=== PATIENT | female | born 1935 | race Caucasian/White ===

== ENCOUNTER 2017-04-09 13:03 | Outpatient (CLI) | payer OTHER ==
[2017-04-10] MEDS ORDERED: gadopentetate dimeglumine 7.5 MMOL/15 ML syringe ONE (16:37)
== END 2017-04-09 23:59 | disposition home or self-care (01) ==
LOC: RAD 13:03
PROVIDERS: ATTEND Specialist
DX: L89.150 Pressure ulcer of sacral region, unstageable (principal)
CPT/HCPCS: 72197; A9579

== ENCOUNTER 2017-04-24 14:58 | Emergency (ER) | payer OTHER ==
[~2017-04-24] VITALS: Ht 152.4 cm; Wt 57.3 kg
[2017-04-24 17:40] VITALS: BP 134/74
== END 2017-04-24 16:39 ==
LOC: ER 14:59
DX: F03.90 Unspecified dementia, unspecified severity, without behavioral disturbance, psychotic disturbance, mood disturbance, and anxiety (principal)
CPT/HCPCS: 99284; 99285